=== PATIENT | male | born 1975 | race Hispanic/Latino ===

== ENCOUNTER 2017-08-14 21:01 | Observation (INO) | payer OTHER ==
[~2017-08-14] VITALS: Ht 177.8 cm; Wt 129.3 kg
[~2017-08-14 21:01] MED LIST: ALLOPURINOL100 MG PO; CALCITRIOL0.25 MCG PO; CARDURA2 MG PO; COREG12.5 MG PO; CYCLOBENZAPRINE5 MG PO; FAMOTIDINE20 MG PO; FLOMAX0.4 MG PO; GABAPENTIN300 MG PO; HUMALOG MI100 UNIT/2; HUMALOG100 UNITS/ SQ; LABETALOL HCL200 MG PO; LANTUS 3ML100 UNITS/; LANTUS 3ML100 UNITS/ SQ; LASIX40 MG PO; LISINOPRIL2.5 MG PO; LOFIBRA54 MG PO; METOCLOPRAMIDE H5 MG PO; METOCLOPRAMIDE10 MG PO; METOLAZONE2.5 MG PO; METOLAZONE5 MG PO; NEXIUM40 MG PO; NIFEDIPINE ER60 MG PO; NITROGLYCERIN0.4 MG SL; Nifedipine PO; PRAVASTATIN SOD40 MG PO; SODIUM BICAR PO; SODIUM BICARBO325 MG PO; TYLENOL WITH C1 EACH PO; VOLTAREN100 GM PO
--- OUTSIDE RECORDS SUMMARY | 2017-08-14 21:03 | XMS REPORT | Clinical Summary ---
Author Author [facility] Address Unknown Phone Unavailable Care Team Providers Care Laboratory Sampler Name Role Phone Asked, Pcp PCP Unavailable Allergies No Known Allergies Current Medications Not on file Active Problems Not on file Social History Tobacco Use Types Packs/Day Years Used Date Never Smoker Alcohol Use Drinks/Week oz/Week Comments No Sex Assigned at Date Recorded Not on file Last Filed Vital Signs Not on file Plan of Treatment Not on file Results Not on fileafter 08/13/2016 Insurance Payer Benefit Subscriber ID Type Phone Address Plan / Group [employer] xxxxxxxxx [facility] STAR[employer]PLUS [facility] [place] [id number]
--- OUTSIDE RECORDS SUMMARY | 2017-08-14 21:03 | XMS REPORT ---
Author Author [facility] Address Unknown Phone Unavailable Care Team Providers Care Steward/Stewardess Wine Name Role Phone CRUZ AL Unavailable Unavailable Problems This patient has no known problems. Allergies, Adverse Reactions, Alerts This patient has no known allergies or adverse reactions. Medications This patient has no known medications. Results Test Description Test Time Test Comments Text Results Atomic Results Result Comments CHEST SINGLE (PORTABLE) [address] [address] Patient Name: ALEJANDRA MOCTEZUMA JR MR #: [id number] : 1975 Age/Sex: 41/M Req #: [id number] [facility] Physician: Ordered by: CRUZ AL MD Report #: [id number] Location: ER Room/Bed: Procedure: [id number] DX/CHEST SINGLE (PORTABLE) Exam Date: 12/26/16 Exam Time: 2037 REPORT STATUS: Signed EXAM: CHEST SINGLE (PORTABLE), AP 1 view DATE: 12/26/2016 8:22 PM Time stamp on exam: 2037 hours INDICATION: Chest pain COMPARISON: AP view of the chest December 05, 2015 FINDINGS: LINES/TUBES: None LUNGS: No consolidations or edema. PLEURA: No effusions or pneumothorax. HEART AND MEDIASTINUM: Normal size and contour. BONES AND SOFT TISSUES: No acute findings. Chronic appearing right posterior fifth rib fracture. IMPRESSION: No acute thoracic abnormality. Signed by: Dr. López Khan M.D. on 2016 9:50 PM Dictated By: LÓPEZ KHAN MD 49 Transcribed By: SHARAN on 12/26/162149 COPY TO: CRUZ AL MD
[2017-08-14 22:06] LABS: BASOPHILS # (AUTO) 0.1 (0.0-0.1); BASOPHILS % 0.6 % (0.0-1.0); EOSINOPHILS # (AUTO) 0.2 (0.0-0.4); EOSINOPHILS % 1.7 % (0.0-6.0); HEMATOCRIT 33.3 % (38.2-49.6); HEMOGLOBIN 11.1 g/dL (14.0-18.0); LYMPHOCYTES # (AUTO) 1.6 (1.0-3.2); LYMPHOCYTES % 15.7 % (18.0-39.1); MEAN CORPUSCULAR HEMOGLOBIN 28.8 pg (28-32); MEAN CORPUSCULAR HGB CONC 33.3 g/dL (31-35); MEAN CORPUSCULAR VOLUME 86.5 fL (81-99); MONOCYTES # (AUTO) 0.7 (0.2-0.8); MONOCYTES % 6.7 % (4.4-11.3); NEUTROPHILS # (AUTO) 7.8 (2.1-6.9); NEUTROPHILS % 74.8 % (38.7-80.0); PLATELET COUNT 233 x10e3/uL (140-360); RED BLOOD COUNT 3.85 x10e6/uL (4.3-5.7); RED CELL DISTRIBUTION WIDTH 13.4 % (11.7-14.4)
[2017-08-14 22:17] LABS: INR 1.1; PROTHROMBIN TIME 13.4 seconds (11.9-14.5)
[2017-08-14 22:18] LABS: PARTIAL THROMBOPLASTIN TIME 31.9 seconds (23.8-35.5)
--- NOTE | 2017-08-14 22:23 | Diagnostic Imaging Report ---
EXAM: CHEST SINGLE (NOT PORTABLE), AP 1 view INDICATION: Chest pain, dizzy COMPARISON: None FINDINGS: LINES/TUBES: None LUNGS: No consolidations or edema. PLEURA: No effusions or pneumothorax. HEART AND MEDIASTINUM: Normal size and contour. BONES AND SOFT TISSUES: No acute findings. IMPRESSION: No acute thoracic abnormality. Signed by: Dr. Alannah Luo M.D. on 08/14/2017 10:20 PM
[2017-08-14 22:26] LABS: ALBUMIN 3.3 g/dL (3.5-5.0); ALBUMIN/GLOBULIN RATIO 0.8 (0.8-2.0); ANION GAP 19.8 mmol/L (8-16); CALCIUM 9.7 mg/dL (8.4-10.2); CREATININE, SERUM 4.61 mg/dL (0.72-1.25); POTASSIUM 4.8 mmol/L (3.5-5.1)
[2017-08-14 22:33] LABS: CREATINE KINASE MB 8.9 ng/mL (0-5.0)
[2017-08-14] MEDS ORDERED: INSULIN REGULAR, HUMAN 100 UNIT/1 ML 3ML VIAL IV ONE ×2 (22:45→23:15)
[2017-08-14] MEDS: SODIUM CHLORIDE 0.9% 1000ML 1,000 ML IV SCH (23:17)
[2017-08-15] VITALS (8 sets, daily range): BP systolic 142–185; BP diastolic 66–88
[2017-08-15] MEDS ORDERED: BELLADONNA ALK/PHENOBARBITAL 5 ML UDC PO STA (00:01)
[2017-08-15] MEDS ORDERED: LIDOCAINE VISC 2% SOLN 15 ML UDC PO ONE (00:15)
[2017-08-15] MEDS ORDERED: MAGNESIUM/ALUMINUM/SIMETHICONE 30 ML UDC PO ONE (00:15)
[2017-08-15 00:22] LABS: AMYLASE 51 U/L (25-125); LIPASE 64 U/L (8-78)
[2017-08-15] MEDS: SODIUM CHLORIDE 0.9% 1000ML 1,000 ML IV SCH (00:50)
[2017-08-15] MEDS ORDERED: ONDANSETRON HCL INJ 2 MG/ML VIAL IV STA (01:08)
[2017-08-15] MEDS ORDERED: MORPHINE SULFATE 2 MG/ML SYR IV STA (01:08)
[2017-08-15] MEDS ORDERED: INSULIN DETEMIR 100 UNIT/ML PEN SQ STA (01:09)
[2017-08-15] MEDS ORDERED: DEXTROSE 50% SYRINGE 50 ML IV PRN (01:15)
[2017-08-15] MEDS ORDERED: MORPHINE SULFATE 2 MG/ML SYR IV PRN (01:15)
[2017-08-15] MEDS ORDERED: SODIUM CHLORIDE FLUSH 10 ML SYR INJ PRN (01:15)
[2017-08-15] MEDS ORDERED: ONDANSETRON HCL INJ 2 MG/ML VIAL IV PRN (01:15)
[2017-08-15] MEDS ORDERED: NITROGLYCERIN 0.4 MG SUBL SL PRN ×2 (01:15→07:30)
[2017-08-15] MEDS ORDERED: NITROGLYCERIN 2% OINT 1 GM PKT TOP ONE (01:15)
--- OUTSIDE RECORDS SUMMARY | 2017-08-15 01:49 | XMS REPORT | Clinical Summary ---
Author Author [facility] Address Unknown Phone Unavailable Care Team Providers Care Necktie Stitcher Name Role Phone Asked, Pcp PCP Unavailable Allergies No Known Allergies Current Medications Not on file Active Problems Not on file Social History Tobacco Use Types Packs/Day Years Used Date Never Smoker Alcohol Use Drinks/Week oz/Week Comments No Sex Assigned at Date Recorded Not on file Last Filed Vital Signs Not on file Plan of Treatment Not on file Results Not on fileafter 08/14/2016 Insurance Payer Benefit Subscriber ID Type Phone Address Plan / Group [employer] xxxxxxxxx [facility] STAR+PLUS [facility] [place] [id number]
[2017-08-15] MEDS: NITROGLYCERIN 2% OINT 1 GM PKT TOP SCH ×3 (06:00→17:01)
[2017-08-15 07:52] LABS: BASOPHILS # (AUTO) 0.1 (0.0-0.1); BASOPHILS % 0.6 % (0.0-1.0); EOSINOPHILS # (AUTO) 0.2 (0.0-0.4); EOSINOPHILS % 2.2 % (0.0-6.0); HEMOGLOBIN 10.2 g/dL (14.0-18.0); LYMPHOCYTES % 21.1 % (18.0-39.1); MEAN CORPUSCULAR HEMOGLOBIN 28.7 pg (28-32); MEAN CORPUSCULAR HGB CONC 32.9 g/dL (31-35); MEAN CORPUSCULAR VOLUME 87.3 fL (81-99); MONOCYTES # (AUTO) 0.9 (0.2-0.8); MONOCYTES % 10.2 % (4.4-11.3); NEUTROPHILS # (AUTO) 6.1 (2.1-6.9); NEUTROPHILS % 65.6 % (38.7-80.0); PLATELET COUNT 211 x10e3/uL (140-360); RED BLOOD COUNT 3.55 x10e6/uL (4.3-5.7); RED CELL DISTRIBUTION WIDTH 13.2 % (11.7-14.4)
[2017-08-15 08:11] LABS: CREATINE KINASE MB 8.9 ng/mL (0-5.0)
[2017-08-15] MEDS: INSULIN REGULAR, HUMAN 100 UNIT/1 ML 3ML VIAL SQ SCH ×2 (08:25→12:32)
[2017-08-15 08:26] LABS: ALBUMIN/GLOBULIN RATIO 0.8 (0.8-2.0); ANION GAP 12.5 mmol/L (8-16); CALCIUM 9.3 mg/dL (8.4-10.2); CREATININE, SERUM 3.9 mg/dL (0.72-1.25); POTASSIUM 4.5 mmol/L (3.5-5.1)
[2017-08-15] MEDS ORDERED: REGADENOSON 0.4 MG/5 ML SYR IV ONE (08:42)
[2017-08-15] MEDS ORDERED: SODIUM BICARBONATE 650 MG TAB PO SCH (09:00)
[2017-08-15] MEDS ORDERED: FAMOTIDINE 20 MG TAB PO SCH (09:00)
[2017-08-15] MEDS ORDERED: SODIUM BICARBONATE PO SCH (09:00)
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
[2017-08-15] MEDS: GABAPENTIN 300 MG CAP PO SCH ×2 (10:13→17:01)
[2017-08-15] MEDS: ALLOPURINOL 100 MG TAB PO SCH (10:13)
[2017-08-15] MEDS: PANTOPRAZOLE SOD 40 MG TABEC PO SCH (10:13)
[2017-08-15] MEDS: LABETALOL HCL 200 MG TAB PO SCH ×2 (10:13→17:01)
[2017-08-15] MEDS: METOCLOPRAMIDE HCL 10 MG TAB PO SCH ×3 (10:13→17:01)
[2017-08-15] MEDS: ASPIRIN 81 MG ENTERIC COATED PO SCH (10:13)
[2017-08-15] MEDS: TAMSULOSIN HCL 0.4 MG CAP PO SCH (10:13)
[2017-08-15] MEDS ORDERED: HYDRALAZINE HCL 20 MG/ML VIAL IV PRN (11:30)
--- NOTE | 2017-08-15 13:48 | Cardiology Report ---
DATE OF STUDY: August 15, 2017 LEXISCAN NUCLEAR STRESS TEST TECHNIQUE: The patient was given 11 millicuries of Myoview. Resting images were obtained in the horizontal long axis, vertical long axis and short axis. Patient was then hooked up to the EKG machine. Lexiscan was infused over 15 seconds. During Lexiscan infusion, the patient had no EKG changes and no chest pain. Immediately after completion of the Lexiscan infusion, the patient was given 30 millicuries of Myoview. Stress images were obtained in the horizontal long axis, vertical long axis and short axis. RESULTS: 1. The resting EKG demonstrated normal sinus rhythm with nonspecific ST and T wave changes. 2. There were no EKG changes and no symptoms during Lexiscan infusion. 3. There was normal perfusion to all segments of the myocardium in both stress and rest. 4. There was normal left ventricular size and function with an ejection fraction of 57%. CONCLUSION: It is a normal Lexiscan nuclear stress test with no evidence of ischemia and normal left ventricular size and function. Job#: [id number] EV cc:COSTA CHAVES MD
[2017-08-15 14:46] LABS: FREE T4 (FREE THYROXINE) 1.14 ng/dL (0.9-1.8); THYROID STIMULATING HORMONE 3.507 uIU/mL (0.350-4.940)
--- NOTE | 2017-08-15 14:52 | Consultation ---
DATE OF CONSULTATION: August 15, 2017 ENDOCRINE CONSULTATION This is a patient of Dr. Taylor. Thank you very much for referring this patient. This is a 41-year-old gentleman who is known to me from his previous followups. Patient is a known diabetic for almost 15 years. He has multiple complications related to diabetes including severe diabetic sensorimotor neuropathy, diabetic nephropathy, chronic renal failure. He came to the hospital with history of chest pain and is being evaluated for the same. At the time of admission, his blood sugar was significantly elevated at 701. Patient takes Levemir insulin 60 units twice a day and 40 of Humalog with each meal depending upon the blood sugars. His other medical problems include history of significant weight gain, obesity, history of anemia, gouty arthritis, BHP, and also has history of craniotomy done in the past. MEDICATIONS: His other routine medications include allopurinol, gabapentin, hydralazine and pravastatin. He is also on Flomax 0.4 mg once daily. PHYSICAL EXAMINATION GENERAL: The patient is alert, awake, a little bit apprehensive. He is morbidly obese. VITALS: His heart rate is around 78. Blood pressure 160/90 mmHg. HEENT: Examination is essentially unremarkable. Thyroid is palpable. Clinically, he is near euthyroid. CHEST: Bilateral vesicular breathing. No rubs heard. CARDIAC: First and 2nd heart sounds. There is no 3rd or 4th heart sound. Ejection systolic murmur grade 2/6. Patient has evidence of diabetic sensorimotor neuropathy in both lower extremities. CLINICAL IMPRESSION 1. Chest pain, rule out coronary artery disease. 2. Diabetes mellitus, type 2, uncontrolled with complications. 3. End-stage renal disease. 4. Hypertension. 5. Hyperlipidemia. 6. Status post craniotomy. 7. Obesity. The plan at this time is to do hemoglobin A1c and thyroid function test. Monitor his blood sugars closely and put him back on the Levemir and Humalog insulin. Thanks again for referring this patient. I will be following this patient with you. Job#: [id number]
--- NOTE | 2017-08-15 15:20 | Consultation ---
DATE OF CONSULTATION: August 15, 2017 NEPHROLOGY CONSULTATION REASON FOR CONSULTATION: Chronic kidney disease stage 4. HISTORY OF PRESENT ILLNESS: Mr. Duran is a 41-year-old man with a history of hypertension, diabetes, chronic kidney disease, coronary artery disease and diabetic gastroparesis, who presented to the emergency department yesterday with chest pain. He states that the chest pain was not associated with radiation into his back or into his left arm. He says that he felt some lightheadedness and nausea while he had the episode of chest pain. It has currently resolved. Upon presentation his blood sugars were in the 700s. His EKG did not show any abnormalities. In regards to his kidney disease, he has renal dysfunction secondary to both diabetic and hypertensive nephropathy. His baseline creatinine is in the range of 3.7 to 4 mg/dl. He is currently at his baseline creatinine. He denies changes in urination or decreased frequency of urination. PAST MEDICAL HISTORY 1. Diabetes. 2. Hypertension. 3. Chronic kidney disease. 4. Diabetic gastroparesis. PAST SURGICAL HISTORY: ORIF of right femur. FAMILY HISTORY: Hypertension and diabetes. SOCIAL HISTORY: No alcohol, tobacco use or drug use. MEDICATIONS: Reviewed in electronic medical record. ALLERGIES: NO KNOWN DRUG ALLERGIES. REVIEW OF SYSTEMS: Negative for fevers. No chills, nausea, vomiting, diarrhea, chest pain, palpitations, abdominal pain, painful urination, numbness or tingling in the upper or lower extremities, changes in mood, changes in appetite, changes in thirst. Fourteen-point review of systems is otherwise negative. PHYSICAL EXAMINATION GENERAL: He is lying comfortably in bed, no acute distress. VITAL SIGNS: Temperature 97.9, heart rate 78, respiratory rate 20, blood pressure 155/72, O2 sat is 98% on room air. HEENT: NC/AT, EOMI. NECK: Supple. JVP not appreciated. LUNGS: Clear to auscultation bilaterally. No wheezing or rales. HEART: Regular rate and rhythm. S1 and S2 normal. ABDOMEN: Soft, nontender, nondistended. Positive bowel sounds. EXTREMITIES: Intact pulses, no edema. SKIN: No rashes or lesions. MUSCULOSKELETAL: Normal gait, normal inspection. NEURO: Cranial nerves 2 through 12 were grossly intact. No focal deficits. LABS: Were reviewed in electronic medical record. Significant for a bicarb of 34, BUN of 72 and creatinine of 3.9. CBC showed a hemoglobin of 10.6. IMAGING: Was reviewed in electronic medical record. Chest x-ray performed yesterday showed no acute thoracic abnormality. ASSESSMENT AND PLAN 1. Chronic kidney disease stage 4. Continue to avoid NSAIDs. Would have a higher risk of developing contrast-induced nephropathy, especially in the setting of uncontrolled diabetes and CKD stage 4. Will continue to monitor kidney function. Blood sugars remain uncontrolled with the most recent one being 305 from 701 mg/dl last night. 2. Accelerated hypertension. Will continue antihypertensives. Blood pressure currently controlled. 3. Metabolic acidosis. Now alkalotic. Will stop the sodium bicarbonate. 4. Urinary retention. Continue tamsulosin. Thank you for allowing me to participate in the care of Mr. Duran. I will continue to follow closely. Job#: [id number] EV
[2017-08-15 16:41] LABS: CREATINE KINASE MB 7.7 ng/mL (0-5.0)
[2017-08-15] MEDS: INSULIN DETEMIR 100 UNIT/ML PEN SQ SCH (17:01)
[2017-08-15] MEDS: INSULIN LISPRO 100 UNIT/1 ML 3ML VIAL SQ SCH ×3 (17:02→21:23)
[2017-08-15] MEDS ORDERED: METOCLOPRAMIDE HCL 10 MG TAB PO SCH (21:00)
[2017-08-15] MEDS ORDERED: NON-FORMULARY MEDICATION (Pravastatin Sodium 40 MG) PO SCH (21:00)
[2017-08-15] MEDS ORDERED: PRAVASTATIN 20 MG TAB PO SCH (21:00)
[2017-08-16] VITALS: BP 154/67
[2017-08-16 00:21] VITALS: BP 144/68
[2017-08-16] MEDS: NITROGLYCERIN 2% OINT 1 GM PKT TOP SCH ×2 (00:30→05:37)
[2017-08-16 04:00] VITALS: BP 168/69
[2017-08-16 07:06] LABS: BASOPHILS # (AUTO) 0.1 (0.0-0.1); BASOPHILS % 0.5 % (0.0-1.0); EOSINOPHILS # (AUTO) 0.2 (0.0-0.4); EOSINOPHILS % 2.1 % (0.0-6.0); HEMATOCRIT 31.3 % (38.2-49.6); HEMOGLOBIN 10.2 g/dL (14.0-18.0); LYMPHOCYTES # (AUTO) 1.8 (1.0-3.2); LYMPHOCYTES % 18.1 % (18.0-39.1); MEAN CORPUSCULAR HEMOGLOBIN 28.9 pg (28-32); MEAN CORPUSCULAR HGB CONC 32.6 g/dL (31-35); MEAN CORPUSCULAR VOLUME 88.7 fL (81-99); MONOCYTES # (AUTO) 0.9 (0.2-0.8); MONOCYTES % 9.4 % (4.4-11.3); NEUTROPHILS # (AUTO) 6.9 (2.1-6.9); NEUTROPHILS % 69.5 % (38.7-80.0); PLATELET COUNT 209 x10e3/uL (140-360); RED BLOOD COUNT 3.53 x10e6/uL (4.3-5.7); RED CELL DISTRIBUTION WIDTH 13.3 % (11.7-14.4)
[2017-08-16 07:28] LABS: CALCIUM 9.3 mg/dL (8.4-10.2); CHOL/HDL RATIO 4.5 (3.9-4.7); CREATININE, SERUM 3.67 mg/dL (0.72-1.25)
[2017-08-16 07:41] LABS: MAGNESIUM 1.8 MG/DL (1.3-2.1)
[2017-08-16 08:07] VITALS: BP 170/74
[2017-08-16 08:07] LABS: FREE T4 (FREE THYROXINE) 1.17 ng/dL (0.9-1.8); THYROID STIMULATING HORMONE 2.888 uIU/mL (0.350-4.940)
[2017-08-16] MEDS: PANTOPRAZOLE SOD 40 MG TABEC PO SCH (08:31)
[2017-08-16] MEDS: TAMSULOSIN HCL 0.4 MG CAP PO SCH (08:31)
[2017-08-16] MEDS: METOCLOPRAMIDE HCL 10 MG TAB PO SCH (08:31)
[2017-08-16] MEDS: ASPIRIN 81 MG ENTERIC COATED PO SCH (08:31)
[2017-08-16] MEDS: ALLOPURINOL 100 MG TAB PO SCH (08:32)
[2017-08-16] MEDS: LABETALOL HCL 200 MG TAB PO SCH (08:32)
[2017-08-16] MEDS: GABAPENTIN 300 MG CAP PO SCH (08:32)
[2017-08-16] MEDS: INSULIN LISPRO 100 UNIT/1 ML 3ML VIAL SQ SCH ×2 (08:32)
[2017-08-16] MEDS: INSULIN DETEMIR 100 UNIT/ML PEN SQ SCH (08:32)
[2017-08-16] MEDS ORDERED: Insulin Lispro SQ ×2 (08:37)
[2017-08-16] MEDS ORDERED: NIFEDIPINE ER30 M1 PO (08:37)
[2017-08-16] MEDS ORDERED: Insulin Detemir SQ (08:37)
[2017-08-16 09:38] VITALS: BP 170/74
[2017-08-16] MEDS ORDERED: SIMVASTATIN 20 MG TAB PO SCH (21:00)
== END 2017-08-16 09:56 | disposition home or self-care (01) ==
LOC: ER 21:01 → ERHOLD 08-15 01:46 → MED/SURG 08-15 01:48
PROVIDERS: ADMIT Internal Medicine; ATTEND Internal Medicine
DX: R07.89 Other chest pain (principal); I20.9 Angina pectoris, unspecified; E11.65 Type 2 diabetes mellitus with hyperglycemia; E11.22 Type 2 diabetes mellitus with diabetic chronic kidney disease; I12.9 Hypertensive chronic kidney disease with stage 1 through stage 4 chronic kidney disease, or unspecified chronic kidney disease; N18.4 Chronic kidney disease, stage 4 (severe); E11.43 Type 2 diabetes mellitus with diabetic autonomic (poly)neuropathy; K31.84 Gastroparesis; E87.2 Acidosis; R33.9 Retention of urine, unspecified; E78.5 Hyperlipidemia, unspecified; E66.9 Obesity, unspecified; E11.42 Type 2 diabetes mellitus with diabetic polyneuropathy; D64.9 Anemia, unspecified
CPT/HCPCS: 36415 ×3; 71045; 78452; 80048; 80053 ×2; 80061; 82150; 82550 ×3; 82553 ×3; 82948 ×2; 83036 ×2; 83690; 83735; 83880; 84439 ×2; 84443 ×2; 84484 ×3; 85025 ×3; 85610; 85730; 93005; 93017; 93306; 93880; 96360; 99284; A9502; G0378 ×2; J2270; J2405; J7030

== ENCOUNTER 2017-12-17 19:24 | Observation (INO) | payer OTHER ==
[~2017-12-17] VITALS: Ht 177.8 cm; Wt 129.3 kg
[~2017-12-17 19:24] MED LIST changes: +Insulin Detemir SQ; +Insulin Lispro SQ; +NIFEDIPINE ER30 M1 PO
[2017-12-17 20:35] LABS: BASOPHILS # (AUTO) 0.1 (0.0-0.1); BASOPHILS % 0.6 % (0.0-1.0); EOSINOPHILS # (AUTO) 0.3 (0.0-0.4); EOSINOPHILS % 2.6 % (0.0-6.0); HEMATOCRIT 32.3 % (38.2-49.6); HEMOGLOBIN 10.7 g/dL (14.0-18.0); LYMPHOCYTES # (AUTO) 1.5 (1.0-3.2); LYMPHOCYTES % 14.8 % (18.0-39.1); MEAN CORPUSCULAR HEMOGLOBIN 28.9 pg (28-32); MEAN CORPUSCULAR HGB CONC 33.1 g/dL (31-35); MEAN CORPUSCULAR VOLUME 87.3 fL (81-99); MONOCYTES # (AUTO) 0.9 (0.2-0.8); MONOCYTES % 9.3 % (4.4-11.3); NEUTROPHILS # (AUTO) 7.1 (2.1-6.9); NEUTROPHILS % 71.6 % (38.7-80.0); PLATELET COUNT 230 x10e3/uL (140-360); RED CELL DISTRIBUTION WIDTH 13.2 % (11.7-14.4)
[2017-12-17 20:48] LABS: BILIRUBIN,URINE NEGATIVE (NEGATIVE); CLARITY,URINE CLEAR (CLEAR); COLOR,URINE YELLOW (YELLOW); KETONES,URINE NEGATIVE (NEGATIVE); LEUKOCYTE ESTERASE ,URINE NEGATIVE (NEGATIVE); NITRITE,URINE NEGATIVE (NEGATIVE); PROTEIN,URINE DIPSTICK 2+ (NEGATIVE); URINE UROBILINOGEN 0.2 mg/dL (0.2 - 1)
[2017-12-17 20:50] LABS: MUCUS,URINE FEW (RARE); WBC,URINE (MAN) 0-5 /HPF (0-5)
[2017-12-17 20:53] LABS: ALBUMIN 3.2 g/dL (3.5-5.0); ALBUMIN/GLOBULIN RATIO 0.9 (0.8-2.0); ANION GAP 17.2 mmol/L (8-16); CALCIUM 9.4 mg/dL (8.4-10.2); CREATININE, SERUM 4.1 mg/dL (0.72-1.25); POTASSIUM 4.2 mmol/L (3.5-5.1)
[2017-12-17 20:56] LABS: AMYLASE 49 U/L (25-125); LIPASE 97 U/L (8-78)
--- NOTE | 2017-12-17 20:57 | Diagnostic Imaging Report ---
EXAM: XR CHEST 1 VIEW DATE: 12/17/2017 8:12 PM INDICATION: Pain COMPARISON: None FINDINGS: Lines and Tubes: None Heart and Mediastinum: No acute cardiomediastinal findings. Lungs and Pleura: No significant pleural effusion, pneumothorax, or focal consolidation. Minimal opacities in the lung bases statistically represent atelectasis, however, infectious process could have a similar appearance. Bones and Soft Tissues: Prominent first left rib ending. IMPRESSION: 1. No acute cardiopulmonary findings. Signed by: Dr. Brett Maza MD on 12/17/2017 8:54 PM
[2017-12-17 21:02] LABS: CREATINE KINASE MB 10.7 ng/mL (0-5.0)
[2017-12-17] MEDS ORDERED: SODIUM CHLORIDE 0.9% 1000ML 1,000 ML IV ONE (23:30)
[2017-12-17] MEDS ORDERED: INSULIN REGULAR, HUMAN 100 UNIT/1 ML 3ML VIAL SQ ONE (23:30)
[2017-12-17] MEDS ORDERED: SODIUM CHLORIDE 0.9% 1000ML 1,000 ML IV SCH (23:39)
[2017-12-17] MEDS ORDERED: PANTOPRAZOLE 40 MG 10ML VIAL IV STA (23:39)
[2017-12-17] MEDS ORDERED: DEXTROSE 50% SYRINGE 50 ML IV PRN (23:45)
[2017-12-18] MEDS: ONDANSETRON HCL INJ 2 MG/ML VIAL IV PRN ×2 (00:30→07:20)
[2017-12-18] MEDS: MORPHINE SULFATE 2 MG/ML SYR IV PRN ×2 (00:30→05:00)
[2017-12-18 05:10] LABS: BASOPHILS # (AUTO) 0.1 (0.0-0.1); BASOPHILS % 0.5 % (0.0-1.0); EOSINOPHILS # (AUTO) 0.3 (0.0-0.4); EOSINOPHILS % 3.6 % (0.0-6.0); HEMATOCRIT 31.2 % (38.2-49.6); HEMOGLOBIN 10.2 g/dL (14.0-18.0); LYMPHOCYTES # (AUTO) 1.9 (1.0-3.2); LYMPHOCYTES % 19.4 % (18.0-39.1); MEAN CORPUSCULAR HEMOGLOBIN 28.6 pg (28-32); MEAN CORPUSCULAR HGB CONC 32.7 g/dL (31-35); MEAN CORPUSCULAR VOLUME 87.4 fL (81-99); MONOCYTES % 10.7 % (4.4-11.3); NEUTROPHILS # (AUTO) 6.2 (2.1-6.9); NEUTROPHILS % 65.1 % (38.7-80.0); PLATELET COUNT 213 x10e3/uL (140-360); RED BLOOD COUNT 3.57 x10e6/uL (4.3-5.7); RED CELL DISTRIBUTION WIDTH 13.3 % (11.7-14.4)
[2017-12-18 05:41] LABS: ALBUMIN 3.1 g/dL (3.5-5.0); ALBUMIN/GLOBULIN RATIO 0.9 (0.8-2.0); ANION GAP 14.7 mmol/L (8-16); CALCIUM 9.1 mg/dL (8.4-10.2); CREATININE, SERUM 3.55 mg/dL (0.72-1.25); POTASSIUM 3.7 mmol/L (3.5-5.1)
[2017-12-18 07:35] LABS: CREATINE KINASE MB 9.5 ng/mL (0-5.0)
[2017-12-18] MEDS ORDERED: PANTOPRAZOLE 40 MG 10ML VIAL IV SCH (09:00)
[2017-12-18] MEDS ORDERED: NIFEDIPINE CR 30 MG TAB PO SCH (09:00)
[2017-12-18] MEDS ORDERED: GABAPENTIN 300 MG CAP PO SCH (09:00)
[2017-12-18] MEDS ORDERED: LABETALOL HCL 200 MG TAB PO SCH (09:00)
[2017-12-18] MEDS ORDERED: FUROSEMIDE 40 MG TAB PO SCH (09:00)
[2017-12-18] MEDS ORDERED: TAMSULOSIN HCL 0.4 MG CAP PO SCH (09:00)
[2017-12-18] MEDS ORDERED: ALLOPURINOL 100 MG TAB PO SCH (09:00)
[2017-12-18] MEDS ORDERED: ASPIRIN 81 MG ENTERIC COATED PO SCH (09:00)
[2017-12-18] MEDS: INSULIN REGULAR, HUMAN 100 UNIT/1 ML 3ML VIAL SQ SCH ×3 (09:44→12:25)
[2017-12-18] MEDS: SODIUM BICARBONATE 650 MG TAB PO SCH (10:00)
[2017-12-18] MEDS: INSULIN DETEMIR 100 UNIT/ML PEN SQ SCH ×2 (10:29→12:15)
[2017-12-18] MEDS ORDERED: METOCLOPRAMIDE HCL 10 MG TAB PO SCH ×2 (11:30→21:00)
[2017-12-18 14:24] LABS: CREATINE KINASE MB 9.1 ng/mL (0-5.0)
[2017-12-18 14:49] VITALS: BP 155/69
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
[2017-12-18] MEDS ORDERED: PRAVASTATIN 20 MG TAB PO SCH (21:00)
== END 2017-12-18 14:55 | disposition home or self-care (01) ==
LOC: ER 19:24 → ERHOLD 23:42 → UNDOADMOB 23:46
PROVIDERS: ADMIT Internal Medicine; ATTEND Internal Medicine
DX: R07.89 Other chest pain (principal); E11.22 Type 2 diabetes mellitus with diabetic chronic kidney disease; E11.65 Type 2 diabetes mellitus with hyperglycemia; E78.5 Hyperlipidemia, unspecified; Z87.820 Personal history of traumatic brain injury; K21.9 Gastro-esophageal reflux disease without esophagitis; E87.1 Hypo-osmolality and hyponatremia; E87.8 Other disorders of electrolyte and fluid balance, not elsewhere classified; Z83.3 Family history of diabetes mellitus; Z84.1 Family history of disorders of kidney and ureter; Z82.49 Family history of ischemic heart disease and other diseases of the circulatory system; R10.12 Left upper quadrant pain; I12.9 Hypertensive chronic kidney disease with stage 1 through stage 4 chronic kidney disease, or unspecified chronic kidney disease; N18.4 Chronic kidney disease, stage 4 (severe); Z79.4 Long term (current) use of insulin
CPT/HCPCS: 36415; 71045; 80053; 81001; 82150; 82550; 82553; 82948; 83690; 84484; 85025; 93005; 99284; G0378 ×2; J2270; J2405; J7030

== ENCOUNTER 2018-05-13 20:45 | Emergency (ER) | payer OTHER ==
[~2018-05-13] VITALS: Ht 177.8 cm; Wt 129.3 kg
--- OUTSIDE RECORDS SUMMARY | 2018-05-13 20:48 | XMS REPORT ---
Author [facility] Address Unknown Phone Unavailable Care Team Providers Care Enterostomal Therapy Nurse Name Role Phone Yeni PETERSON Unavailable Unavailable COSTA CHAVES Unavailable Unavailable Betsy AL LAISARAH BETH Unavailable Unavailable Payers Payer Name Policy Type Policy Number Effective Date Expiration Date Problems This patient has no known problems. Allergies, Adverse Reactions, Alerts Allergy Name Allergy Type Status Severity Reaction(s) Onset Date Inactive Date Treating Clinician Comments tramadol DA Active DE 2018-04-19 00:00:00 tramadol DA Active DE 2018-01-22 00:00:00 tramadol DA Active DE 2017-12-04 00:00:00 Medications This patient has no known medications. Results Test Description Test Time Test Comments Text Results Atomic Results Result Comments CHEST SINGLE (PORTABLE) 2017-12-17 20:53:00 [place] [address] Patient Name: ALEJANDRA MOCTEZUMA MR #: [id number] : 1975 Age/Sex: 42/M Req #: [id number] Adm Physician: Ordered by: KELLE PETERSON MD Report #: [id number] Location: ER Room/Bed: Procedure: [id number] DX/CHEST SINGLE (PORTABLE) Exam Date: 12/17/17 Exam Time: 2021 REPORT STATUS: Signed EXAM: XR CHEST 1 VIEW DATE: 12/17/2017 8:12 PM INDICATION: Pain COMPARISON: None FINDINGS: Lines and Tubes: None Heart and Mediastinum: No acute cardiomediastinal findings. Lungs and Pleura: No significant pleural effusion, pneumothorax, or focal consolidation. Minimal opacities in the lung bases statistically represent atelectasis, however, infectious process could have a similar appearance. Bones and Soft Tissues: Prominent first left rib ending. IMPRESSION: 1. No acute cardiopulmonary findings. Signed by: Dr. Brett Maza MD on 12/17/2017 8:54 PM Dictated By: BRETT MAZA MD 53 Transcribed By: SHARAN on 12/17/172053 COPY TO: KELLE PETERSON MD Stress Test - Treadmill ONLY [place] [address] Patient Name : ALEJANDRA MOCTEZUMA JR, JR MR #: [id number] : 1975 Age/Sex: 41/M Adm Physician : COSTA CHAVES MD Admit Date : 08/15/17 Location : MED/SURG Room/Bed : [facility] REPORT: Cardiology Report DATE OF STUDY: August 15, 2017 LEXISCAN NUCLEAR STRESS TEST TECHNIQUE: The patient was given 11 millicuries of Myoview. Resting images were obtained in the horizontal long axis, vertical long axis and short axis. Patient was then hooked up to the EKG machine. Lexiscan was infused over 15 seconds. During Lexiscan infusion, the patient had no EKG changes and no chest pain. Immediately after completion of the Lexiscan infusion, the patient was given 30 millicuries of Myoview. Stress images were obtained in the horizontal long axis, vertical long axis and short axis. RESULTS: 1. The resting EKG demonstrated normal sinus rhythm with nonspecific ST and T wave changes. 2. There were no EKG changes and no symptoms during Lexiscan infusion. 3. There was normal perfusion to all segments of the myocardium in both stress and rest. 4. There was normal left ventricular size and function with an ejection fraction of 57%. CONCLUSION: It is a normal Lexiscan nuclear stress test with no evidence of ischemia and normal left ventricular size and function. Job#: [id number] EV cc: COSTA CHAVES MD Signature Date Dictated By: CARLENE BELLAMY MD Transcribed By: SMEDS on 08/15/17 <Electronically signed by CARLENE BELLAMY MD><<Signature on File>>08/16/17 0659 COPY TO: CHEST SINGLE (NOT PORTABLE) [place] [address] Patient Name: ALEJANDRA MOCTEZUMA JR, JR MR #: [id number] : 1975 Age/Sex: 41/M Acct #: [id number] Req #: [id number] Adm Physician: Ordered by: JORJE KUMAR MD Report #: [id number] Location: ER Room/Bed: Procedure: [id number] DX/CHEST SINGLE (NOT PORTABLE) Exam Date: 08/14/17 Exam Time: 2144 REPORT STATUS: Signed EXAM: CHEST SINGLE (NOT PORTABLE), AP 1 view INDICATION: Chest pain, dizzy COMPARISON: None FINDINGS: LINES/TUBES: None LUNGS: No consolidations or edema. PLEURA: No effusions or pneumothorax. HEART AND MEDIASTINUM: Normal size and contour. BONES AND SOFT TISSUES: No acute findings. IMPRESSION: No acute thoracic abnormality. Signed by: Dr. López Luo M.D. on 08/14/2017 10:20 PM Dictated By: LÓPEZ LUO MD 19 Transcribed By: SHARAN on 08/14/172219 COPY TO: JORJE KUMAR MD CHEST SINGLE (PORTABLE) [place] [address] Patient Name: ALEJANDRA MOCTEZUMA JR MR #: [id number] : 1975 Age/Sex: 41/M Acct #: [id number] Req #: [id number] Adm Physician: Ordered by: CRUZ AL MD Report #: [id number] Location: ER Room/Bed: Procedure: [id number] DX/CHEST SINGLE (PORTABLE) Exam Date: 12/26/16 Exam [...] No acute thoracic abnormality. Signed by: Dr. Lpóez Luo M.D. on 12/26/2016 9:50 PM Dictated By: LÓPEZ LUO MD 49 Transcribed By: SHARAN on 12/26/162149 COPY TO: CRUZ AL MD
--- OUTSIDE RECORDS SUMMARY | 2018-05-13 20:48 | XMS REPORT | Clinical Summary ---
Author Author Derrick Hindu Organization [facility] Address Unknown Phone Unavailable Care Team Providers Care Scouring Train Operator Name Role Phone Asked, No Pcp PCP Unavailable Allergies No Known Allergies Medications Not on file Active Problems Not on file Social History Date Tobacco Use Types Packs/Day Years Used Never Smoker Alcohol Use Drinks/Week oz/Week Comments No Sex Assigned at Date Recorded Not on file Industry Job Start Date Occupation Not on file Not on file Not on file Travel End Travel History Travel Start No recent travel history available. Last Filed Vital Signs Not on file Plan of Treatment Not on file Results Not on fileafter 05/12/2017 Insurance Payer Benefit Subscriber ID Type Phone Address Plan / Group [employer] xxxxxxxxx [facility] STAR+PLUS [facility] DEANNKo cobos (Home) [place] [address] Advance Directives Patient has advance care planning documents on file. For more information, kathy tse contact: Derrick Weber [address] [place] [address]
[2018-05-13 21:20] LABS: BASOPHILS # (AUTO) 0.1 (0.0-0.1); BASOPHILS % 0.6 % (0.0-1.0); EOSINOPHILS # (AUTO) 0.4 (0.0-0.4); EOSINOPHILS % 3.9 % (0.0-6.0); HEMATOCRIT 33.5 % (38.2-49.6); HEMOGLOBIN 10.9 g/dL (14.0-18.0); LYMPHOCYTES # (AUTO) 1.8 (1.0-3.2); LYMPHOCYTES % 17.9 % (18.0-39.1); MEAN CORPUSCULAR HEMOGLOBIN 29.2 pg (28-32); MEAN CORPUSCULAR HGB CONC 32.5 g/dL (31-35); MEAN CORPUSCULAR VOLUME 89.8 fL (81-99); MONOCYTES # (AUTO) 0.9 (0.2-0.8); MONOCYTES % 8.6 % (4.4-11.3); NEUTROPHILS % 68.2 % (38.7-80.0); PLATELET COUNT 252 x10e3/uL (140-360); RED BLOOD COUNT 3.73 x10e6/uL (4.3-5.7); RED CELL DISTRIBUTION WIDTH 13.3 % (11.7-14.4)
[2018-05-13 21:38] LABS: ALBUMIN 3.2 g/dL (3.5-5.0); ALBUMIN/GLOBULIN RATIO 0.8 (0.8-2.0); ANION GAP 16.2 mmol/L (8-16); CALCIUM 9.4 mg/dL (8.4-10.2); CREATININE, SERUM 3.91 mg/dL (0.72-1.25); POTASSIUM 4.2 mmol/L (3.5-5.1)
[2018-05-13 21:44] LABS: CREATINE KINASE MB 5.8 ng/mL (0-5.0)
--- NOTE | 2018-05-13 21:54 | Diagnostic Imaging Report ---
CHEST 2 VIEWS, Technique: CHEST 2 VIEWS Comparison: 12/17/2017 Clinical history: Chest pain DISCUSSION: Normal/stable cardiomediastinal silhouette. No consolidation or edema. No effusion or pneumothorax. IMPRESSION: No acute abnormality Signed by: Dr Lorna Dixon MD on 05/13/2018 9:51 PM
[2018-05-13] MEDS ORDERED: INSULIN REGULAR, HUMAN 100 UNIT/1 ML 3ML VIAL SQ ONE (23:15)
== END 2018-05-14 00:36 | disposition left against medical advice (07) ==
LOC: ER 20:45
DX: R07.9 Chest pain, unspecified (principal); N18.3 Chronic kidney disease, stage 3 (moderate); I10 Essential (primary) hypertension; E11.9 Type 2 diabetes mellitus without complications
CPT/HCPCS: 36415; 71046; 80053; 82550; 82553; 83880; 84484; 85025; 85379; 93005; 99283

== ENCOUNTER 2018-06-02 15:59 | Observation (INO) | payer OTHER ==
[~2018-06-02] VITALS: Ht 177.8 cm; Wt 133.8 kg
--- OUTSIDE RECORDS SUMMARY | 2018-06-02 16:01 | XMS REPORT | Clinical Summary ---
Author Author Derrick [facility] Organization [facility] Address Unknown Phone Unavailable Care Team Providers Care Sandblaster Glass Name Role Phone Asked, No Pcp PCP [...] Not on file Results Not on fileafter 06/01/2017 Insurance Payer Benefit Subscriber ID Type Phone Address Plan / Group [employer] xxxxxxxxx [facility] STAR+PLUS [facility] DE[place]NK[place] cobos (Home) [place] [address] Advance Directives Patient has advance care planning documents on file. For more information, kathy tse contact: Derrick Weber [address] [place] [address]
[2018-06-02] MEDS ORDERED: SODIUM CHLORIDE 0.9% 1000ML 1,000 ML IV STA (16:34)
[2018-06-02] MEDS ORDERED: HUMALOG100 UNIT/3 SQ (16:37)
[2018-06-02] MEDS ORDERED: FAMOTIDINE20 MG PO (16:37)
[2018-06-02] MEDS ORDERED: LANTUS 3ML100 UNITS/ SQ (16:37)
[2018-06-02] MEDS ORDERED: ASPIRIN 81 MG CHEW TAB PO ONE (17:00)
[2018-06-02] MEDS: NITROGLYCERIN 0.4 MG SUBL SL PRN ×3 (17:03→18:06)
[2018-06-02 17:21] LABS: BASOPHILS # (AUTO) 0.1 (0.0-0.1); BASOPHILS % 0.7 % (0.0-1.0); EOSINOPHILS # (AUTO) 0.4 (0.0-0.4); EOSINOPHILS % 3.5 % (0.0-6.0); HEMATOCRIT 30.7 % (38.2-49.6); HEMOGLOBIN 10.8 g/dL (14.0-18.0); LYMPHOCYTES # (AUTO) 1.4 (1.0-3.2); LYMPHOCYTES % 13.9 % (18.0-39.1); MEAN CORPUSCULAR HEMOGLOBIN 30.6 pg (28-32); MEAN CORPUSCULAR HGB CONC 35.2 g/dL (31-35); MONOCYTES # (AUTO) 0.8 (0.2-0.8); MONOCYTES % 7.3 % (4.4-11.3); NEUTROPHILS # (AUTO) 7.6 (2.1-6.9); NEUTROPHILS % 73.8 % (38.7-80.0); PLATELET COUNT 250 x10e3/uL (140-360); RED BLOOD COUNT 3.53 x10e6/uL (4.3-5.7); RED CELL DISTRIBUTION WIDTH 13.3 % (11.7-14.4)
[2018-06-02 17:23] LABS: INR 0.98; PROTHROMBIN TIME 13.9 seconds (11.9-14.5)
[2018-06-02 17:24] LABS: PARTIAL THROMBOPLASTIN TIME 34.6 seconds (23.8-35.5)
[2018-06-02 17:33] LABS: ALBUMIN/GLOBULIN RATIO 0.9 (0.8-2.0); ANION GAP 18.6 mmol/L (8-16); CALCIUM 9.3 mg/dL (8.4-10.2); CREATININE, SERUM 4.25 mg/dL (0.72-1.25); POTASSIUM 4.6 mmol/L (3.5-5.1)
[2018-06-02 17:40] LABS: CREATINE KINASE MB 5.8 ng/mL (0-5.0)
[2018-06-02] MEDS ORDERED: NITROGLYCERIN 2% OINT 1 GM PKT TOP NR (18:15)
--- NOTE | 2018-06-02 18:18 | Diagnostic Imaging Report ---
EXAMINATION: CHEST SINGLE (PORTABLE) INDICATION: ^CP ^[id number] ^[id number] COMPARISON: 05/13/2018 FINDINGS: AP view TUBES and LINES: None. LUNGS: Limited by body habitus. There is no evidence of pneumonia or pulmonary edema. PLEURA: No pleural effusion or pneumothorax. HEART AND MEDIASTINUM: The cardiac silhouette is unremarkable. Unchanged thickening of the right paratracheal stripe. BONES AND SOFT TISSUES: No acute osseous lesion. Soft tissues are unremarkable. UPPER ABDOMEN: No free air under the diaphragm. IMPRESSION: No acute thoracic abnormality. Signed by: Dr. Jaime King MD on 06/02/2018 6:15 PM
[2018-06-02] MEDS ORDERED: ONDANSETRON HCL INJ 2MG/ML 2ML 2 MG/ML VIAL IV PRN (18:30)
[2018-06-02] MEDS ORDERED: NITROGLYCERIN 0.4 MG SUBL SL PRN (18:30)
--- NOTE | 2018-06-02 18:43 | NUR ---
VERBAL REPORT GIVEN TO JULIANN BRADY.
[2018-06-02] MEDS ORDERED: DEXTROSE 50% SYRINGE 50 ML IV PRN (18:45)
[2018-06-02] MEDS: SODIUM CHLORIDE 0.9% 1000ML 1,000 ML IV SCH (18:55)
[2018-06-02] MEDS: NITROGLYCERIN 2% OINT 1 GM PKT TOP SCH (18:58)
[2018-06-02] MEDS ORDERED: MORPHINE SULFATE INJ 4 MG/ML INJ 1ML IV PRN (19:00)
--- OUTSIDE RECORDS SUMMARY | 2018-06-02 19:39 | XMS REPORT | Clinical Summary ---
Author Author Derrick Hindu Organization [facility] Address Unknown Phone Unavailable Care Team Providers Care Stock Tracer Name Role Phone Asked, No Pcp PCP [...] Address Plan / Group [employer] xxxxxxxxx [facility] STAR[facility]PLUS [facility] [place] [address] (Home) [place] [address] Advance Directives Patient has advance care planning documents on file. For more information, kathy tse contact: Derrick Weber [address] [place] [address]
[2018-06-02] MEDS: INSULIN REGULAR, HUMAN 100 UNIT/1 ML 3ML VIAL SQ SCH (19:44)
[2018-06-02 20:00] VITALS: BP 163/81
[2018-06-02] MEDS ORDERED: INSULIN REGULAR, HUMAN 100 UNIT/1 ML 3ML VIAL SQ SCH (21:00)
[2018-06-02] MEDS: METOCLOPRAMIDE HCL 10 MG TAB PO SCH (21:36)
[2018-06-02 21:55] VITALS: BP 134/75
[2018-06-02 22:18] VITALS: BP 134/75
[2018-06-03] VITALS: BP_SYST 149; BP_SYST 152; BP_DIAS 64; BP_DIAS 70
[2018-06-03] MEDS: NITROGLYCERIN 2% OINT 1 GM PKT TOP SCH ×2 (00:05→05:55)
[2018-06-03 00:40] LABS: CREATINE KINASE MB 4.2 ng/mL (0-5.0)
[2018-06-03 04:00] VITALS: BP 162/74
[2018-06-03 05:08] LABS: BASOPHILS # (AUTO) 0.1 (0.0-0.1); BASOPHILS % 0.6 % (0.0-1.0); EOSINOPHILS # (AUTO) 0.5 (0.0-0.4); EOSINOPHILS % 4.9 % (0.0-6.0); HEMATOCRIT 30.2 % (38.2-49.6); HEMOGLOBIN 9.7 g/dL (14.0-18.0); LYMPHOCYTES % 19.2 % (18.0-39.1); MEAN CORPUSCULAR HEMOGLOBIN 28.9 pg (28-32); MEAN CORPUSCULAR HGB CONC 32.1 g/dL (31-35); MEAN CORPUSCULAR VOLUME 89.9 fL (81-99); MONOCYTES % 9.3 % (4.4-11.3); NEUTROPHILS # (AUTO) 6.9 (2.1-6.9); NEUTROPHILS % 65.4 % (38.7-80.0); PLATELET COUNT 223 x10e3/uL (140-360); RED BLOOD COUNT 3.36 x10e6/uL (4.3-5.7); RED CELL DISTRIBUTION WIDTH 13.3 % (11.7-14.4)
[2018-06-03 05:29] LABS: ANION GAP 15.4 mmol/L (8-16); CHOL/HDL RATIO 4.2 (3.9-4.7); CREATININE, SERUM 3.84 mg/dL (0.72-1.25); POTASSIUM 4.4 mmol/L (3.5-5.1)
[2018-06-03] MEDS: SODIUM CHLORIDE 0.9% 1000ML 1,000 ML IV SCH (05:55)
--- NOTE | 2018-06-03 07:09 | NUR ---
Report given to oncoming NATHALIE Farley,walking round done.
[2018-06-03] MEDS ORDERED: PANTOPRAZOLE SOD 40 MG TABEC PO SCH (07:30)
[2018-06-03 07:38] VITALS: BP 172/77
[2018-06-03] MEDS: INSULIN REGULAR, HUMAN 100 UNIT/1 ML 3ML VIAL SQ SCH (08:00)
[2018-06-03 08:09] LABS: CREATINE KINASE MB 4.3 ng/mL (0-5.0)
[2018-06-03] MEDS: METOCLOPRAMIDE HCL 10 MG TAB PO SCH (08:21)
[2018-06-03] MEDS ORDERED: ASPIRIN 81 MG ENTERIC COATED PO SCH (09:00)
--- NOTE | 2018-06-03 09:05 | NUR ---
SOCIAL WORK INITIAL ASSESSMENT Director Of Event Sales to bedside to discuss plan of care with patient/family. CM/SW role and care transitions discussed. Anticipated discharge plan discussed along with duration of care. CM/SW discussed patients right to make decisions in care. CM/SW work hours given. Patient lives: IN HOUSE WITH FAMILY Admit/Transfer: VIA ED FROM HOME POA/Emergency contact: STATES HAS NEW NUMBER BUT DOESNT KNOW IT Current/Previous Home Health: [facility] 2 TIMES FOR THERAPY AND 1 FOR NURSING A WEEK PCP/Follow-up Care: [facility] Current/Previous DME: [facility] Other Services: NONE Employment Status: DISABLED Areas of Concerns: NONE Referral Needs: NONE Education Needs: NONE IMM/BROCK given and signed (if applicable): NA Goal for discharge: RETURN HOME INDEPENDENTLY CM/SW left business card at the bedside with contact information. Name and number was also written on the patients whiteboard. Patient verbalized understanding of discussion. CM will follow-up with ongoing discharge and transition of care needs.
[2018-06-03] MEDS ORDERED: NON-FORMULARY MEDICATION (Metolazone 2.5 MG) PO SCH (10:00)
--- NOTE | 2018-06-03 10:11 | Consultation ---
DATE OF CONSULTATION: RENAL CONSULTATION Thank you, Dr. Taylor, for the consultation. Mr. Duran is a pleasant 42-year-old male with a past medical history significant for history of diabetes mellitus, hypertension, chronic kidney disease, stage 4, who I know quite well from the outpatient setting. Also, has a history of lower extremity edema, CHF. Came into the hospital apparently with low blood pressure and near syncope, some flank pain, and admitted for volume depletion, amtaf-sa-nedsuya kidney disease. He has been hospitalized previously for this. In any case, the patient was admitted and given some IV fluids. Diuretics were held. Creatinine and BUN are improving. Sodium is better also. Currently, no nausea. No vomiting. No chest pain. No fever. No chills. No abdominal pain. No other specific symptoms. Renal consultation is asked for the management of the acute kidney injury on chronic kidney disease, stage 4. PAST MEDICAL HISTORY: As outlined above. MEDICATIONS: That he takes are aspirin, insulin, allopurinol, outpatient furosemide, metolazone, Pravastatin, and Flomax. ALLERGIES: NO KNOWN DRUG ALLERGIES. SOCIAL HISTORY: No tobacco. No alcohol use. FAMILY HISTORY: Noncontributory. REVIEW OF SYSTEMS: See HPI. All other systems negative. Medications as outlined above. PHYSICAL EXAMINATION VITAL SIGNS: As follows: Blood pressure 170/70, pulse 80, 19 respiratory rate, and afebrile. HEENT: No cervical lymphadenopathy. NECK: Supple without masses. No obvious JVD. Mucous membranes moist. SKIN: Good skin turgor. LUNGS: Good expansion. Lungs with rales at the bases bilaterally. CARDIOVASCULAR: S1 and S2. No obvious gallop or murmur. ABDOMEN: Soft. Positive bowel sounds. Nontender. EXTREMITIES: No evidence of edema. No clubbing. No cyanosis. NEUROLOGIC: Awake, alert and oriented times 3. The rest is nonfocal exam. LABS: H and H 9.7 and 30.2. Chemistry: Potassium 4.4, BUN 50, creatinine is 3.8, improved from creatinine yesterday of 4.25. IMPRESSION AND PLAN 1. Acute kidney injury on chronic kidney disease, stage 4: The patient likely had acute prerenal azotemia from likely overdiuresis. He has responded quite well to hydration with normal saline at 100 mL per hour. Diuretics have been held. Will continue with current management. The patient's blood pressures also improved. Actually, it is high now. His BUN and creatinine have improved as well. His blood sugars are better controlled. For now, would discontinue the intravenous fluids, and leave him off diuretics. Prior to discharge, will resume his diuretics. However, would decrease his metolazone for the patient to take only Sunday, Sunday and Sunday rather than daily. Recheck a.m. labs including basic metabolic panel, CBC, and urine electrolytes. Make further recommendations. 2. Hypertension: Blood pressure is high and on the higher side now. Will discontinue the normal saline. Recommend to resume his blood pressure medications. Would avoid any CHUN inhibitors or ARBs at this time. 3. Hyponatremia, resolved after intravenous fluid hydration: Would discontinue isotonic intravenous fluids. Thank you once again for the consultation. Will follow the patient with you and make further recommendations. Job#: [id number] RI cc:COSTA TAYLOR MD
[2018-06-03] MEDS ORDERED: HYDRALAZINE HCL 20 MG/ML VIAL IV PRN (10:15)
[2018-06-03] MEDS ORDERED: FAMOTIDINE20 MG PO (10:35)
[2018-06-03] MEDS ORDERED: ASPIRIN EC81 MG PO (10:35)
[2018-06-03] MEDS ORDERED: METOCLOPRAMIDE10 MG PO (10:42)
[2018-06-03] MEDS ORDERED: TAMSULOSIN HCL 0.4 MG CAP PO SCH (11:00)
[2018-06-03] MEDS ORDERED: ALLOPURINOL 100 MG TAB PO SCH (11:00)
[2018-06-03 11:29] VITALS: BP 182/90
--- NOTE | 2018-06-03 11:29 | Consultation ---
DATE OF CONSULTATION: June 03, 2018 REFERRING PHYSICIAN: Dr. Brandon Taylor. REASON FOR CONSULTATION: Chest pain. HISTORY OF PRESENT ILLNESS: Mr. Duran is a 42-year-old man with morbid obesity, type 2 diabetes mellitus with chronic kidney disease stage 4, a GFR of 17 today, hypertension, and mixed dyslipidemia, who has a history of atypical chest pain with multiple admissions to various hospitals, including this hospital, as well as recent hospitalization to [facility] for similar complaints. He reports a reassuring stress was done at [facility] recently as well as an echocardiogram done there. Symptoms were described as chest discomfort, midsternal, sharp in nature, unrelated to exertion, occurred after meal and while lying down, unaffected by exercise. Relieved after several minutes and no recurrence. Currently symptom-free. He denies any radiation or other associated complaints. He states his home blood pressure has been better controlled lately. He is undergoing close followup with nephrology. He has no other complaints at this time. REVIEW OF SYSTEMS: A 12-system review is negative except for as noted above. ALLERGIES: PER EMR. SOCIAL HISTORY: Denies active smoking, alcohol or drugs. FAMILY HISTORY: Noncontributory. PAST MEDICAL HISTORY: Significant for diabetes, hypertension, dyslipidemia, and CKD. PHYSICAL EXAMINATION VITAL SIGNS: Afebrile, heart rate 68, respiratory rate 18, blood pressure 156/84. GENERAL: No acute distress. Alert. NECK: No JVD. No carotid bruits. CHEST: Clear to auscultation. CARDIOVASCULAR: Regular rate and rhythm. Normal S1 and S2. No S3. No S4. No murmurs. No rubs. ABDOMEN: Soft and nontender. EXTREMITIES: Trace edema. Warm distal extremities. CARDIOVASCULAR MEDICATIONS: Reviewed. 1. Aspirin. 2. Furosemide. 3. Metolazone. 4. Labetalol. 5. Nitroglycerin p.r.n. 6. Prilosec. STUDIES: Reviewed. Telemetry: normal sinus rhythm. Chest x-ray: no acute cardiopulmonary abnormalities reported. Triglycerides 182, total cholesterol 146, LDL 75, HDL 35. Sodium 139, potassium 4.4, chloride 100, bicarbonate 28, BUN 50, creatinine 3.84, glucose 270. White blood cells 10.4, hemoglobin 9.7, platelets 223. INR 0.98. D-dimer 0.24. Troponin I negative x3. BNP is 19.5. ASSESSMENT 1. Atypical chest pain. 2. Diabetes mellitus type 2. 3. Chronic kidney disease stage 4. 4. Hypertension. 5. Mixed dyslipidemia. 6. Morbid obesity. RECOMMENDATIONS 1. Patient has ruled out with serial cardiac enzymes and has had resolution of his chest discomfort. He is currently in sinus rhythm and underwent recent testing at other institution, per patient report reassuring. 2. He has advanced CKD which is being monitored closely by nephrology. 3. Recommend aggressive medical optimization of his risk factors for atherosclerotic vascular disease and close followup with nephrology, outpatient evaluation by cardiology the following 2 to 4 weeks. Okay to discharge patient from a cardiovascular standpoint. Job#: [id number] CLAUDE
--- NOTE | 2018-06-03 11:45 | NUR ---
PT LEFT AMA, IV DC'D. JUAN MANUEL BEAR NOTIFIED
[2018-06-03] MEDS ORDERED: METOLAZONE 5 MG TAB PO SCH (12:00)
--- NOTE | 2018-06-03 16:56 | Discharge Summary ---
ADMISSION DIAGNOSES 1. Chest pain. 2. Hypertension. 3. Hyperlipidemia. 4. Chronic kidney disease 4. 5. Gout. 6. Morbid obesity. 7. Gastroparesis. 8. Type 2 diabetes. 9. Neuropathy. DISCHARGE DIAGNOSES 1. Chest pain. 2. Hypertension. 3. Hyperlipidemia. 4. Chronic kidney disease 4. 5. Gout. 6. Morbid obesity. 7. Gastroparesis. 8. Type 2 diabetes. 9. Neuropathy. 10. Ruled out acute coronary syndrome. MEDICAL HISTORY 1. Type 2 diabetes. 2. Hypertension. 3. Chronic kidney disease 4. 4. Gastroparesis. 5. Gout. 6. Neuropathy. SURGICAL HISTORY: Right leg surgery. FAMILY HISTORY: Patient's father had a stroke. SOCIAL HISTORY: Noncontributory. HOSPITAL COURSE: A 42-year-old male complains of substernal, sharp, intermittent chest pain that does not radiate. The pain occurs intermittently but happened yesterday while on the toilet having a BM. He denies shortness of breath, nausea, vomiting, dizziness, diaphoresis. According to the patient, he had a stress test at [facility] two weeks ago and it was negative. ON admission, troponins were negative x3. Chest x-ray was negative. After doing some research, patient did not actually have a stress test or an echo at [facility]. So, Cardiology cleared for discharge as well as Nephrology, but I ordered an echo to get one in the system. The patient refused and said he wanted to go against medical advice. So, although patient was cleared for discharge by all consults, he left AMA prior to the echo being done. Vital signs stable, patient afebrile. Dictated by: Gina Delgadillo NP COSTA CHAVES MD Job#: [id number] EV
[2018-06-03] MEDS ORDERED: FUROSEMIDE 40 MG TAB PO SCH (17:00)
[2018-06-03] MEDS ORDERED: INSULIN DETEMIR 100 UNIT/ML PEN SQ SCH (17:00)
[2018-06-03] MEDS ORDERED: LABETALOL HCL 200 MG TAB PO SCH (17:00)
[2018-06-03] MEDS ORDERED: GABAPENTIN 300 MG CAP PO SCH (17:00)
[2018-06-03] MEDS ORDERED: METOCLOPRAMIDE HCL 10 MG TAB PO SCH (21:00)
[2018-06-03] MEDS ORDERED: PRAVASTATIN 20 MG TAB PO SCH (21:00)
[2018-06-04] MEDS ORDERED: FENOFIBRATE PO SCH (09:00)
[2018-06-04] MEDS ORDERED: FAMOTIDINE 20 MG TAB PO SCH (09:00)
[2018-06-04] MEDS ORDERED: NON-FORMULARY MEDICATION (Pravastatin Sodium 40 MG) PO SCH (09:00)
== END 2018-06-03 11:49 | disposition left against medical advice (07) ==
LOC: ER 15:59 → ERHOLD 19:37 → IMCU 20:11
PROVIDERS: ADMIT Internal Medicine; ATTEND Internal Medicine
DX: R07.9 Chest pain, unspecified (principal); E11.22 Type 2 diabetes mellitus with diabetic chronic kidney disease; I12.9 Hypertensive chronic kidney disease with stage 1 through stage 4 chronic kidney disease, or unspecified chronic kidney disease; N18.4 Chronic kidney disease, stage 4 (severe); Z79.4 Long term (current) use of insulin; E11.43 Type 2 diabetes mellitus with diabetic autonomic (poly)neuropathy; K31.84 Gastroparesis; E11.40 Type 2 diabetes mellitus with diabetic neuropathy, unspecified; M10.9 Gout, unspecified; E66.01 Morbid (severe) obesity due to excess calories; Z68.41 Body mass index [BMI] 40.0-44.9, adult; E78.5 Hyperlipidemia, unspecified; E87.1 Hypo-osmolality and hyponatremia; N17.9 Acute kidney failure, unspecified
CPT/HCPCS: 36415 ×2; 71045; 80048; 80053; 80061; 82550 ×2; 82553 ×2; 82948 ×2; 83880; 84484 ×2; 85025 ×2; 85379; 85610; 85730; 93005; 99284; G0378 ×2; J1817; J7030 ×2; S0164

== ENCOUNTER 2020-01-30 20:56 | Emergency (ER) | payer OTHER ==
[~2020-01-30] VITALS: Ht 177.8 cm; Wt 124.7 kg
[~2020-01-30 20:56] MED LIST changes: +ASPIRIN EC81 MG PO; +HUMALOG100 UNIT/3 SQ
--- NOTE | 2020-01-30 21:26 | Emergency Department Note ---
History of Present Illnes History of Present Illness Chief Complaint: Eye, Ear, Nose, Throat, Dental History of Present Illness This is a 44 year old male s/o right ear pain got worse 3-4 days. Past Medical History Hypertension, Diabetes, Hyperlipedemia, Chronic Kidney Disease Other Medical History Atypical chest pain chronic kidney disease stage 4 BRAIN BLEED DUE TO TRAUMA Other Surgery HEAD SURGERY LEG SURGERY CRAINITOMY DUE TO BRAIN BLEED Historian: Patient Arrival Mode: Car Sales Driver Required: No Radiation: Reports neck Severity: moderate Onset quality: gradual Duration (how long): day(s) Timing of current episode: constant Progression: worsening Relieving factors: none Exacerbating factors: none Associated symptoms: Reports denies other symptoms, Reports other Past Medical/Family History Physician Review I have reviewed the patient's past medical and family history. Any updates have been documented here. Past Medical History Recent Fever: No Clinical Suspicion of Infectio: No New/Unexplained Change in Ment: No Past Medical History: Hypertension, Diabetes, Hyperlipedemia, Chronic Kidney Disease Other Medical History: Atypical chest pain chronic kidney disease stage 5 on dialysis BRAIN BLEED DUE TO TRAUMA Other Surgery: HEAD SURGERY LEG SURGERY CRAINITOMY DUE TO BRAIN BLEED Social History Smoking Cessation: Never Smoker Counseling Performed: No Alcohol Use: None Any Illegal Drug Use: No Physically hurt or threatened: No Other Last Tetanus: UTD Any Pre-Existing Lines (PICC,: Yes (DIALYSIS SHUNT) Review of Systems Review of Systems Constitutional: Reports no symptoms EENTM: Reports as per HPI, Reports ear pain Cardiovascular: Reports no symptoms Respiratory: Reports no symptoms Gastrointestinal: Reports no symptoms Genitourinary: Reports no symptoms Musculoskeletal: Reports no symptoms Integumentary: Reports no symptoms Neurological: Reports no symptoms Psychological: Reports no symptoms Endocrine: Reports no symptoms Hematological/Lymphatic: Reports no symptoms Physical Exam Related Data Allergies: Coded Allergies: No Known Allergies (Unverified , 12/17/17) Triage Vital Signs Vital Signs Date Time Temp Pulse Resp B/P (MAP) Pulse Ox O2 Delivery O2 Flow Rate FiO2 01/30/20 21:08 97.8 84 18 142/70 99 Vital signs reviewed: Yes Physical Exam CONSTITUTIONAL Constitutional: Present well-developed, Present well-nourished, Present obese, Present distressed HENT HENT: Present normocephalic, Present atraumatic, Present oropharynx clear/moist, Present nose normal HENT L/R: Present left ext ear normal, Present other (right ear has a large piece of rubber inside) EYES Eyes: Reports PERRL, Reports conjunctivae normal NECK Neck: Present ROM normal PULMONARY Pulmonary: Present effort normal, Present breath sounds normal CARDIOVASCULAR Cardiovascular: Present regular rhythm, Present heart sounds normal, Present capillary refill normal, Present normal rate GASTROINTESTINAL Abdominal: Present soft, Present nontender, Present bowel sounds normal GENITOURINARY Genitourinary: Present exam deferred SKIN Skin: Present warm, Present dry MUSCULOSKELETAL Musculoskeletal: Present ROM normal NEUROLOGICAL Neurological: Present alert, Present oriented x 3, Present no gross motor or sensory deficits PSYCHOLOGICAL Psychological: Present mood/affect normal, Present judgement normal Procedures Foreign Body - Ear Location: right ear canal Foreign body suspected: other (black rubber ear piece) TM intact pre-procedure: yes Foreign body removed: yes Removal technique: forceps Tympanic membrane intace: Yes Patient tolerated procedure: well Complications: none Additional comments ear canal look red and friable after Assessment & Plan Medical Decision Making MDM foreign object in right ear Assessment & Plan Final Impression: (1) Otitis externa (2) Foreign body in right ear Last Vital Signs Date Time Temp Pulse Resp B/P (MAP) Pulse Ox O2 Delivery O2 Flow Rate FiO2 01/30/20 21:08 97.8 84 18 142/70 99 Home Meds Active Scripts Metoclopramide Hcl (METOCLOPRAMIDE HCL) 10 Mg Tablet, 10 MG PO ACHS for 30 Days, TAB Prov:JUAN MANUEL ALONZO CRM ANALYST 06/03/18 Famotidine (FAMOTIDINE) 20 Mg Tab, 20 MG PO BIDAC for 30 Days, TAB Prov:JUAN MANUEL ALONZO CRM ANALYST 06/03/18 Aspirin (ASPIRIN EC) 81 Mg Tablet.dr, 81 MG PO QAM for 30 Days Prov:JUAN MANUEL ALONZO CRM ANALYST 06/03/18 Reported Medications Insulin Glargine (LANTUS 3ML PEN) 100 Units/1 Ml Inj, 66 UNITS SQ BID 06/02/18 Insulin Lispro (HUMALOG) 100 Unit/1 Ml Insuln.pen, 60 UNITS SQ AC 06/02/18 Famotidine (FAMOTIDINE) 20 Mg Tab, 20 MG PO DAILY, #30 TAB 06/02/18 Gabapentin (GABAPENTIN) 300 Mg Capsule, 600 MG PO BID, #60 CAP 03/15/16 Allopurinol (ALLOPURINOL) 100 Mg Tablet, 2 TAB PO DAILY, #30 TAB 01/12/16 Metolazone (METOLAZONE) 2.5 Mg Tablet, 2.5 MG PO UD 01/12/16 Pravastatin Sodium (PRAVASTATIN SODIUM) 40 Mg Tablet, 40 MG PO DAILY 12/15/15 Labetalol Hcl (LABETALOL HCL) 200 Mg Tablet, 300 MG PO BID, #60 TAB 10/28/15 Furosemide (LASIX) 40 Mg Tablet, 40 MG PO BID, #30 TAB 10/28/15 Fenofibrate (LOFIBRA) 54 Mg Tablet, 1 TAB PO DAILY 10/28/15 Physician Attestation Provider Attestation cipro otic drop on d/c SOLA HOUSTON MD Jan 30, 2020 21:26
== END 2020-01-30 21:28 | disposition home or self-care (01) ==
LOC: FSED 21:10
DX: H60.91 Unspecified otitis externa, right ear (principal); T16.1XXA Foreign body in right ear, initial encounter; I12.0 Hypertensive chronic kidney disease with stage 5 chronic kidney disease or end stage renal disease; E11.22 Type 2 diabetes mellitus with diabetic chronic kidney disease; N18.5 Chronic kidney disease, stage 5; Z99.2 Dependence on renal dialysis
CPT/HCPCS: 99282

== ENCOUNTER 2020-10-11 22:30 | Emergency (ER) | payer OTHER ==
[~2020-10-11] VITALS: Ht 177.8 cm; Wt 131.5 kg
[2020-10-11] MEDS ORDERED: CEFDINIR300 MG PO (23:26)
[2020-10-11] MEDS ORDERED: CORTISPORIN-TC10 M1 LEFT EAR (23:26)
[2020-10-11] MEDS ORDERED: HYDROCODONE/APAP 5MG-325MG TAB PO ONE (23:30)
[2020-10-12] VITALS: BP 174/79
[2020-10-12] MEDS ORDERED: HYDROCODONE/APAP 5MG-325MG TAB ONE (00:05)
== END 2020-10-12 | disposition home or self-care (01) ==
LOC: FSED 23:25
DX: H66.91 Otitis media, unspecified, right ear (principal); I12.0 Hypertensive chronic kidney disease with stage 5 chronic kidney disease or end stage renal disease; E11.22 Type 2 diabetes mellitus with diabetic chronic kidney disease; N18.6 End stage renal disease; Z99.2 Dependence on renal dialysis; E78.5 Hyperlipidemia, unspecified
CPT/HCPCS: 99283

== ENCOUNTER 2021-04-24 07:10 | Inpatient (IN) | payer MEDICARE, OTHER ==
[~2021-04-24] VITALS: Ht 177.8 cm; Wt 129.3 kg
[~2021-04-24 07:10] MED LIST changes: +CEFDINIR300 MG PO; +CORTISPORIN-TC10 M1 LEFT EAR
[2021-04-24] MEDS ORDERED: KETOROLAC TROMETHAMINE 30 MG/ML VIAL IV STA (07:37)
[2021-04-24] MEDS ORDERED: HYDROCODONE/APAP 10MG-325MG TAB PO ONE (07:45)
[2021-04-24 07:56] LABS: BASOPHILS # (AUTO) 0.1 (0.0-0.1); BASOPHILS % 0.4 % (0.0-1.0); EOSINOPHILS # (AUTO) 0.1 (0.0-0.4); EOSINOPHILS % 0.6 % (0.0-6.0); HEMOGLOBIN 8.2 g/dL (14.0-18.0); LYMPHOCYTES # (AUTO) 0.9 (1.0-3.2); LYMPHOCYTES % 4.3 % (18.0-39.1); MEAN CORPUSCULAR HEMOGLOBIN 27.5 pg (28-32); MEAN CORPUSCULAR HGB CONC 30.4 g/dL (31-35); MEAN CORPUSCULAR VOLUME 90.6 fL (81-99); MONOCYTES % 9.3 % (4.4-11.3); NEUTROPHILS # (AUTO) 17.8 (2.1-6.9); NEUTROPHILS % 84.5 % (38.7-80.0); PLATELET COUNT 271 x10e3/uL (140-360); RED BLOOD COUNT 2.98 x10e6/uL (4.3-5.7); RED CELL DISTRIBUTION WIDTH 15.9 % (11.7-14.4)
[2021-04-24 08:05] LABS: INR 1.18
[2021-04-24 08:06] LABS: PARTIAL THROMBOPLASTIN TIME 35.7 seconds (23.8-35.5)
[2021-04-24 08:12] LABS: ALBUMIN 2.1 g/dL (3.5-5.0); ALBUMIN/GLOBULIN RATIO 0.5 (0.8-2.0); ANION GAP 20.3 mmol/L (8-16); CALCIUM 7.8 mg/dL (8.4-10.2); CREATININE, SERUM 10.06 mg/dL (0.72-1.25); POTASSIUM 4.3 mmol/L (3.5-5.1)
[2021-04-24 08:20] LABS: CREATINE KINASE MB 1.8 ng/mL (0-5.0)
[2021-04-24] MEDS ORDERED: ONDANSETRON HCL INJ 2MG/ML 2ML 2 MG/ML VIAL IV PRN (08:45)
[2021-04-24] MEDS ORDERED: Vancomycin IV 1 GM in SODIUM CHLORIDE 0.9% 250ML 250 ML IV ONE (08:45)
[2021-04-24] MEDS: CEFEPIME 2 GM in SODIUM CHLORIDE 0.9% 100 ML IV SCH ×2 (09:00→20:20)
[2021-04-24] MEDS: HYDROCODONE/APAP 10MG-325MG TAB PO PRN (10:09)
[2021-04-24 11:10] VITALS: BP 120/59
[2021-04-24 11:24] VITALS: BP 120/59
[2021-04-24 11:30] VITALS: BP 120/59
[2021-04-24] MEDS ORDERED: DEXTROSE 50% SYRINGE 50 ML IV PRN (13:45)
[2021-04-24 15:57] VITALS: BP 121/64
[2021-04-24] MEDS: INSULIN LISPRO 100 UNIT/1 ML 3ML VIAL SQ SCH ×2 (16:28→20:20)
[2021-04-24] MEDS ORDERED: NALOXONE HCL INJ 0.4 MG/ML AMP IV PRN (19:45)
[2021-04-24 20:00] VITALS: BP 136/79
[2021-04-24] MEDS: Morphine 4mg Syringe 4 MG/ML INJ IV PRN (20:00)
[2021-04-24] MEDS ORDERED: SODIUM CHLORIDE 0.9% 250ML 250 ML ONE (20:18)
[2021-04-25] VITALS (7 sets, daily range): BP systolic 125–152; BP diastolic 68–75
[2021-04-25] MEDS: Morphine 4mg Syringe 4 MG/ML INJ IV PRN (04:01)
[2021-04-25 05:06] LABS: BASOPHILS # (AUTO) 0.1 (0.0-0.1); BASOPHILS % 0.3 % (0.0-1.0); EOSINOPHILS # (AUTO) 0.3 (0.0-0.4); EOSINOPHILS % 1.5 % (0.0-6.0); HEMATOCRIT 26.5 % (38.2-49.6); HEMOGLOBIN 8.1 g/dL (14.0-18.0); LYMPHOCYTES % 4.8 % (18.0-39.1); MEAN CORPUSCULAR HEMOGLOBIN 26.9 pg (28-32); MEAN CORPUSCULAR HGB CONC 30.6 g/dL (31-35); MONOCYTES # (AUTO) 1.8 (0.2-0.8); MONOCYTES % 8.6 % (4.4-11.3); NEUTROPHILS # (AUTO) 17.4 (2.1-6.9); NEUTROPHILS % 83.6 % (38.7-80.0); PLATELET COUNT 261 x10e3/uL (140-360); RED BLOOD COUNT 3.01 x10e6/uL (4.3-5.7)
[2021-04-25 05:27] LABS: ALBUMIN 1.9 g/dL (3.5-5.0); ALBUMIN/GLOBULIN RATIO 0.5 (0.8-2.0); ANION GAP 19.6 mmol/L (8-16); CALCIUM 7.2 mg/dL (8.4-10.2); CREATININE, SERUM 10.8 mg/dL (0.72-1.25); POTASSIUM 4.6 mmol/L (3.5-5.1)
[2021-04-25] MEDS: HYDROCODONE/APAP 10MG-325MG TAB PO PRN (05:30)
[2021-04-25 06:10] LABS: CREATINE KINASE MB 1.3 ng/mL (0-5.0)
[2021-04-25] MEDS: CEFEPIME 2 GM in SODIUM CHLORIDE 0.9% 100 ML IV SCH (10:48)
[2021-04-25] MEDS: INSULIN LISPRO 100 UNIT/1 ML 3ML VIAL SQ SCH ×4 (10:48→21:23)
[2021-04-25] MEDS ORDERED: MIDAZOLAM HCL 2 MG/2 ML VIAL ONE (11:37)
[2021-04-25] MEDS ORDERED: FENTANYL CITRATE/PF 100MCG/2 ML INJ ONE (11:37)
[2021-04-25] MEDS ORDERED: SODIUM CHLORIDE 0.9% 1000ML 1,000 ML ONE (13:17)
[2021-04-25] MEDS ORDERED: BENZOCAINE 20% SPR 60 ML CAN ONE (13:17)
[2021-04-25] MEDS ORDERED: LIDOCAINE HCL 2% LOCAL INJ 5 ML SDV VIAL INJ ONE (16:38)
[2021-04-25] MEDS ORDERED: PROPOFOL IV EMULSION 10 MG/ML 20 ML VIAL ONE (16:38)
[2021-04-25] MEDS ORDERED: POVIDONE IODINE 0.05% 0.05 % ML PO ONE (16:38)
[2021-04-26] VITALS (9 sets, daily range): BP systolic 120–148; BP diastolic 64–77
[2021-04-26] MEDS: Morphine 4mg Syringe 4 MG/ML INJ IV PRN ×3 (03:20→18:30)
[2021-04-26] MEDS: INSULIN LISPRO 100 UNIT/1 ML 3ML VIAL SQ SCH ×4 (07:30→21:57)
[2021-04-26] MEDS ORDERED: ENOXAPARIN SODIUM INJ 100 MG/ML SYR SC SCH (09:00)
[2021-04-26] MEDS ORDERED: SODIUM CHLORIDE 0.9% 1000ML 2,000 ML ONE (09:09)
[2021-04-26] MEDS: MEROPENEM 500 MG in SODIUM CHLORIDE 0.9% 50ML 50 ML IV SCH (11:36)
[2021-04-26] MEDS ORDERED: Vancomycin IV 1 GM in SODIUM CHLORIDE 0.9% 250ML 250 ML IV SCH (17:00)
[2021-04-26] MEDS: HYDROCODONE/APAP 10MG-325MG TAB PO PRN (23:17)
[2021-04-27] MEDS: Morphine 4mg Syringe 4 MG/ML INJ IV PRN ×2 (02:30→07:32)
[2021-04-27 03:50] VITALS: BP 160/62
[2021-04-27 05:12] LABS: BASOPHILS # (AUTO) 0.1 (0.0-0.1); BASOPHILS % 0.3 % (0.0-1.0); EOSINOPHILS # (AUTO) 0.3 (0.0-0.4); EOSINOPHILS % 1.4 % (0.0-6.0); HEMATOCRIT 29.3 % (38.2-49.6); HEMOGLOBIN 8.8 g/dL (14.0-18.0); LYMPHOCYTES # (AUTO) 1.4 (1.0-3.2); LYMPHOCYTES % 6.5 % (18.0-39.1); MEAN CORPUSCULAR HEMOGLOBIN 27.2 pg (28-32); MEAN CORPUSCULAR VOLUME 90.7 fL (81-99); MONOCYTES # (AUTO) 1.7 (0.2-0.8); NEUTROPHILS % 82.5 % (38.7-80.0); PLATELET COUNT 310 x10e3/uL (140-360); RED BLOOD COUNT 3.23 x10e6/uL (4.3-5.7); RED CELL DISTRIBUTION WIDTH 16.2 % (11.7-14.4)
[2021-04-27] MEDS: INSULIN LISPRO 100 UNIT/1 ML 3ML VIAL SQ SCH (07:30)
[2021-04-27] MEDS ORDERED: HEPARIN SOD (PORCINE) 5,000 UNIT/ML VIAL SC SCH (09:00)
[2021-04-27 09:14] VITALS: BP 145/69
[2021-04-27] MEDS: MEROPENEM 500 MG in SODIUM CHLORIDE 0.9% 50ML 50 ML IV SCH (09:35)
[2021-04-27 09:46] VITALS: BP 145/69
[2021-04-27] MEDS: HYDROCODONE/APAP 10MG-325MG TAB PO PRN (10:50)
[2021-04-27 11:53] VITALS: BP 145/77
[2021-04-28] MEDS ORDERED: HEPARIN SOD (PORCINE) 5,000 UNIT/ML VIAL SC SCH (09:00)
== END 2021-04-27 13:00 | disposition home or self-care (01) | DRG 548 ==
LOC: ER 07:18 → ERHOLD 08:45 → MED/SURG2 09:45
PROVIDERS: ADMIT Internal Medicine; ATTEND Internal Medicine
PROC: B24BZZ4 Ultrasonography of Heart with Aorta, Transesophageal (ICD-10-PCS; principal; 2021-04-25 15:10)
PROC: 5A1D70Z Performance of Urinary Filtration, Intermittent, Less than 6 Hours Per Day (ICD-10-PCS; 2021-04-26)
DX: M00.861 Arthritis due to other bacteria, right knee (principal); N18.6 End stage renal disease; T84.53XA Infection and inflammatory reaction due to internal right knee prosthesis, initial encounter; L03.115 Cellulitis of right lower limb; M86.661 Other chronic osteomyelitis, right tibia and fibula; Z68.41 Body mass index [BMI] 40.0-44.9, adult; R78.81 Bacteremia; I12.0 Hypertensive chronic kidney disease with stage 5 chronic kidney disease or end stage renal disease; R07.89 Other chest pain; E11.22 Type 2 diabetes mellitus with diabetic chronic kidney disease; Z99.2 Dependence on renal dialysis; E78.5 Hyperlipidemia, unspecified; Z88.8 Allergy status to other drugs, medicaments and biological substances; E11.42 Type 2 diabetes mellitus with diabetic polyneuropathy; Z86.16 Personal history of COVID-19; E66.9 Obesity, unspecified; D63.1 Anemia in chronic kidney disease; E11.69 Type 2 diabetes mellitus with other specified complication; B96.89 Other specified bacterial agents as the cause of diseases classified elsewhere; J98.2 Interstitial emphysema; Z79.82 Long term (current) use of aspirin; Z79.4 Long term (current) use of insulin
CPT/HCPCS: 36415; 71045; 71250; 80053; 82550; 82553; 82948; 83605; 83735; 84484; 85025; 85610; 85730; 86704; 86706; 87040; 87071; 87186; 87205; 87340; 93005; 93306; 93307; 93312; 93325; 94799; 99251; 99284; J0692; J1644; J1650; J1885; J2001; J2185; J2250; J2270; J2405; J3010; J3370; J7030; J7050; U0002